=== PATIENT | female | born 1955 | race Caucasian/White ===

== ENCOUNTER → 2020-08-02 | Outpatient (CLI) | payer OTHER ==
[~2020-08-02] MED LIST: ALENDRONATE SOD70 MG PO; ANASTROZOLE1 MG PO; ASPIRIN CHEWABL81 MG PO; BACLOFEN10 MG PO; BACTRIM DS TAB1 EACH PO; CALCIUM600 MG PO; CILOSTAZOL50 MG PO; GABAPENTIN800 MG PO; HABITROL 14 MG P1 EA TD; LASIX TAB 20 MG20 MG PO; LIPITOR40 MG PO; LISINOPRIL30 MG PO; METFORMIN HCL1000 MG PO; NEURONTIN 300300 MG PO; NEURONTIN 400400 MG PO; NORVASC 5 MG TAB5 MG PO; PLAVIX 75 MG TA75 MG PO; PLETAL 100 MG100 MG PO; VENTOLIN HFA 66.7 GM INH
[2020-08-02 12:40] LABS: HEMOGLOBIN 12.3 gm/dl (12.3-15.3); RED BLOOD COUNT 3.94 M/UL (4.00-5.10); WHITE BLOOD COUNT 7.4 K/UL (4.5-11.0)
== END ==
LOC: MAMO 07-04 10:00
PROVIDERS: Internal Medicine Hematology & Oncology
DX: Z12.31 Encounter for screening mammogram for malignant neoplasm of breast (principal); Z85.3 Personal history of malignant neoplasm of breast; Z80.3 Family history of malignant neoplasm of breast
CPT/HCPCS: 36415; 77063; 77067; 80053; 85027

== ENCOUNTER → 2021-03-27 | Outpatient (CLI) | payer OTHER | LOC: EXRD 03-16 13:00 | DX: C50.319 Malignant neoplasm of lower-inner quadrant of unspecified female breast (principal); M85.89 Other specified disorders of bone density and structure, multiple sites | CPT/HCPCS: 77080 ==

== ENCOUNTER → 2021-08-09 | Outpatient (CLI) | payer MEDICARE, OTHER ==
[2021-08-09 15:10] LABS: HEMOGLOBIN 13.3 gm/dl (12.3-15.3); RED BLOOD COUNT 4.22 M/UL (4.00-5.10); WHITE BLOOD COUNT 5.4 K/UL (4.5-11.0)
[2021-08-10 11:17] LABS: CREATININE, URINE 26.1 mg/dL (Not Estab.); MICROALB/CREAT RATIO <11 (0-29)
[2021-08-12 15:11] LABS: CHOLESTEROL, TOTAL 95 mg/dL (100-199); HDL SIZE 8.9 nm (>=9.2); HDL-C 32 mg/dL (>39); LARGE HDL-P 2.7 umol/L (>=4.8); LARGE VLDL-P 2.2 nmol/L (<=2.7); LDL SIZE 20.6 nm (>20.5); LDL SIZE 20.6 nm (>=20.8); LDL-C 43 mg/dL (0-99); LDL-P 709 nmol/L (<1000); LP-IR SCORE 57 (<=45); SMALL LDL-P 377 nmol/L (<=527); TRIGLYCERIDES 109 mg/dL (0-149); VLDL SIZE 48.5 nm (<=46.6)
== END ==
LOC: MAMO 13:00
PROVIDERS: Emergency Medicine
DX: Z12.31 Encounter for screening mammogram for malignant neoplasm of breast (principal); C50.319 Malignant neoplasm of lower-inner quadrant of unspecified female breast; I12.9 Hypertensive chronic kidney disease with stage 1 through stage 4 chronic kidney disease, or unspecified chronic kidney disease; E11.22 Type 2 diabetes mellitus with diabetic chronic kidney disease; N18.9 Chronic kidney disease, unspecified; E78.2 Mixed hyperlipidemia; E79.0 Hyperuricemia without signs of inflammatory arthritis and tophaceous disease; E11.42 Type 2 diabetes mellitus with diabetic polyneuropathy
CPT/HCPCS: 36415; 77063; 77067; 80053; 80061; 82043; 82570; 83036; 83704; 84443; 84550; 85025

== ENCOUNTER → 2021-11-22 | Outpatient (CLI) | payer MEDICARE, OTHER | LOC: HEART 5 11-13 10:00 | DX: I10 Essential (primary) hypertension (principal); R01.1 Cardiac murmur, unspecified; I07.1 Rheumatic tricuspid insufficiency ==